=== PATIENT | male | born 1950 | race Caucasian/White ===

== ENCOUNTER 2024-04-01 12:00 | Emergency (ER) | payer OTHER, MEDICAID ==
[~2024-04-01] VITALS: Ht 167.6 cm; Wt 68.0 kg
[2024-04-01] MEDS ORDERED: HYDROCODONE/APAP 5/325MG TABLET ONE (12:29)
[2024-04-01] MEDS: HYDROCODONE/APAP 5/325MG TABLET PO ONE (12:32)
[2024-04-01] MEDS ORDERED: NAPR-1009 PO (13:13)
[2024-04-01 14:35] VITALS: BP 118/77; TEMP 97.9; O2SAT 98
== END 2024-04-01 14:35 | disposition home or self-care (01) ==
LOC: ER 12:24
DX: G89.29 Other chronic pain (principal); M25.551 Pain in right hip; E11.9 Type 2 diabetes mellitus without complications; F32.A Depression, unspecified; Z48.02 Encounter for removal of sutures; Z96.641 Presence of right artificial hip joint; Z98.890 Other specified postprocedural states